=== PATIENT | female | born 1995 | race African-American/Black ===

== ENCOUNTER 2017-12-07 23:27 | Emergency (ER) | payer SELFPAY ==
[2017-12-08 00:01] LABS: Bilirubin Negative (Negative); Blood, Urine Trace (Negative); Clarity CLEAR (Clear); Glucose, Urine (Dipstick) Negative (Negative); Leukocyte Small (Negative); Nitrite Negative (Negative); Protein, Urine (Dipstick) Negative (Neg-Trace); Specific Gravity, Urine 1.021 (1.002-1.036); Urobilinogen 0.2 mg/dL (0.2-1.0); pH, Urine 6.5 (5.0-9.0)
[2017-12-08 00:04] LABS: Bacteria/HPF None Seen HPF (None Seen); Hyaline Casts/LPF 0-3 HYALINE CAST LPF (0-3 Hyaline); Pathc Cast-AUWi Flag 0.58 (0-2.49)
[2017-12-08] MEDS ORDERED: Azithromycin 250 MG TAB ONE (01:16)
[2017-12-08] MEDS ORDERED: cefTRIAXone\\ROCEPHIN 250 MG VIAL ONE (01:16)
[2017-12-08] MEDS ORDERED: Lidocaine 1% PF 5 ML VIAL ONE (01:16)
[2017-12-08 22:08] LABS: Chlamydia by PCR Not Detected (NotDetected); GC by PCR Not Detected (NotDetected)
== END 2017-12-08 02:45 | disposition home or self-care (01) ==
LOC: ERS 23:27
DX: N89.8 Other specified noninflammatory disorders of vagina (principal)
CPT/HCPCS: 81003; 81015; 87086; 87480; 87491; 87510; 87591; 87660; 96372; J0696; J2001